=== PATIENT | female | born 1985 | race African-American/Black ===

== ENCOUNTER 2016-09-17 00:12 | Emergency (ER) | payer MEDICAID ==
[2016-09-17] MEDS ORDERED: AMOXICILLIN TRIHYDRATE 500 MG CAPSULE PO ONE (01:47)
--- NOTE | 2016-09-17 01:49 | ER Document Report ---
ED ENT - General Chief Complaint: Flu Symptoms Stated Complaint: FEVER,COUGH Time seen by provider: 01:47 Mode of Arrival: Ambulatory Information source: Patient TRAVEL OUTSIDE OF THE [place] IN LAST 30 DAYS: No - HPI Patient complains to provider of: Throat problem Onset: This morning Onset/Duration: Gradual Quality of pain: Achy Severity: Mild Pain Level: 1 Location of pain: Throat Associated symptoms: Chills, Congestion, Cough, Runny nose, Sore throat Similar symptoms previously: Yes Recently seen / treated by doctor: No Notes: Patient is a 31-year-old female with a history of asthma who presents to the emergency room complaining of fever, body aches, nonproductive cough, sore throat, diarrhea, symptoms started today, her 9-year-old son with similar symptoms over the past few days as well denies nausea or vomiting - Related Data Allergies/Adverse Reactions: No Known Allergies Allergy (Verified 01/29/16 22:02) Past Medical History - General Information source: Patient - Social History Smoking Status: Never Smoker Chew tobacco use (# tins/day): No Frequency of alcohol use: Occasional Drug Abuse: None Family History: Reviewed & Not Pertinent Patient has suicidal ideation: No Patient has homicidal ideation: No - Past Medical History Cardiac Medical History: Denies: Hx Coronary Artery Disease, Hx Heart Attack, Hx Hypertension Pulmonary Medical History: Reports: Hx Asthma - seasonal no current inhaler Denies: Hx Bronchitis, Hx COPD, Hx Pneumonia Neurological Medical History: Denies: Hx Cerebrovascular Accident, Hx Seizures Renal/ Medical History: Denies: Hx Peritoneal Dialysis Musculoskeltal Medical History: Denies Hx Arthritis - Immunizations Hx Diphtheria, Pertussis, Tetanus Vaccination: Yes Review of Systems - Review of Systems Constitutional: See HPI EENT: See HPI Cardiovascular: No symptoms reported Respiratory: See HPI Gastrointestinal: Diarrhea Genitourinary: No symptoms reported Female Genitourinary: No symptoms reported Musculoskeletal: No symptoms reported Skin: No symptoms reported Hematologic/Lymphatic: No symptoms reported Neurological/Psychological: No symptoms reported -: Yes All other systems reviewed and negative Physical Exam - Vital signs Vitals: Temp Pulse Resp BP Pulse Ox 100.3 F 116 H 17 120/68 98 09/17/16 00:21 09/17/16 00:21 09/17/16 00:21 09/17/16 00:21 09/17/16 00:21 Interpretation: Tachycardic - General General appearance: Appears well, Alert In distress: None - HEENT Head: Normocephalic, Atraumatic Eyes: Normal Conjunctiva: Normal Extraocular movements intact: Yes Eyelashes: Normal Pupils: PERRL Ears: Normal External canal: Normal Tympanic membrane: Normal Sinus: Normal Nasal: Normal Mucous membranes: Normal Pharynx: Erythema, Exudate, Tonsillar hypertrophy Neck: Normal - Respiratory Respiratory status: No respiratory distress Chest status: Nontender Breath sounds: Normal Chest palpation: Normal - Cardiovascular Rhythm: Regular Heart sounds: Normal auscultation Murmur: No - Abdominal Inspection: Obese Distension: No distension Bowel sounds: Normal Tenderness: Nontender Organomegaly: No organomegaly - Back Back: Normal, Nontender - Extremities General upper extremity: Normal inspection, Nontender, Normal color, Normal ROM , Normal temperature General lower extremity: Normal inspection, Nontender, Normal color, Normal ROM , Normal temperature, Normal weight bearing. No: Yoshi's sign - Neurological Neuro grossly intact: Yes Cognition: Normal Orientation: AAOx4 Sherry Coma Scale Eye Opening: Spontaneous [place] Coma Scale Verbal: Oriented [place] Coma Scale Motor: Obeys Commands Sherry Coma Scale Total: 15 Speech: Normal Motor strength normal: LUE, RUE, LLE, RLE Sensory: Normal - Psychological Associated symptoms: Normal affect, Normal mood - Skin Skin Temperature: Warm Skin Moisture: Dry Skin Color: Normal Course - Re-evaluation Re-evalutation: 09/17/16 02:25 Patient's posterior pharynx consistent with strep pharyngitis, she was started on antibiotics for this, advised to take Tylenol or Motrin as needed for pain or fever, follow up with her primary care provider or return if symptoms worsen , patient acknowledges understanding and agreement with this plan - Vital Signs Vital signs: Temp Pulse Resp BP Pulse Ox 99.1 F 109 H 18 113/76 99 09/17/16 01:46 09/17/16 01:46 09/17/16 01:46 09/17/16 01:46 09/17/16 01:46 Discharge - Discharge Clinical Impression: Strep pharyngitis Condition: Stable Disposition: HOME, SELF-CARE Instructions: Acetaminophen, Strep Throat ([facility]) Additional Instructions: Tylenol or Motrin as needed for fever or body aches. Follow up with your primary care provider in 2-3 days. Return to the emergency room immediately if symptoms worsen or any additional concerns. Prescriptions: Amoxicillin Trihydrate [Amoxil 500 mg Capsule] 500 mg PO TID #30 cap Forms: Return to Work Referrals: CHARLES VILLARREAL MD [Primary Care Provider] - Follow up as needed
[2016-09-17 02:06] VITALS: BP 113/76
[2016-09-17] MEDS ORDERED: IBUPROFEN 800 MG TABLET PO ONE (02:10)
== END 2016-09-17 02:14 | disposition home or self-care (01) ==
LOC: ER 00:12
DX: J02.0 Streptococcal pharyngitis (principal); R50.9 Fever, unspecified; R05 Cough; R00.0 Tachycardia, unspecified; M79.1 Myalgia; R19.7 Diarrhea, unspecified
CPT/HCPCS: 99283; 87804; J3490

== ENCOUNTER 2017-10-27 11:23 | Emergency (ER) | payer MEDICAID ==
[2017-10-27] MEDS ORDERED: DEXAMETHASONE SOD PHOS INJ 10 MG/1 ML VIAL IM ONE (12:27)
[2017-10-27] MEDS ORDERED: KETOROLAC TROMETHAMINE INJ/PF 30 MG/1 ML SDV IM ONE (12:27)
[2017-10-27 13:24] LABS: APPEARANCE,URINE SLIGHTLY-CLOUDY; BILIRUBIN,URINE NEGATIVE (NEGATIVE); COLOR,URINE YELLOW; GLUCOSE, URINE NEGATIVE (NEGATIVE); KETONES,URINE NEGATIVE (NEGATIVE); LEUKOCYTE ESTERASE,URINE TRACE (NEGATIVE); NITRITE,URINE NEGATIVE (NEGATIVE); PROTEIN,URINE NEGATIVE (NEGATIVE); URINE SPECIFIC GRAVITY 1.016; UROBILINOGEN,URINE NEGATIVE mg/dL (<2.0)
--- NOTE | 2017-10-27 13:54 | RADIOLOGY REPORT (SQ) ---
EXAM DESCRIPTION: CHEST 2 VIEWS COMPLETED DATE/TIME: 10/27/2017 1:18 pm REASON FOR STUDY: cough congestion fever sore throat COMPARISON: None. EXAM PARAMETERS: NUMBER OF VIEWS: two views TECHNIQUE: Digital Frontal and Lateral radiographic views of the chest acquired. RADIATION DOSE: NA LIMITATIONS: none FINDINGS: LUNGS AND PLEURA: There are scattered somewhat ill-defined reticulonodular densites which could be related to an interstitial pneumonitis or viral syndrome. MEDIASTINUM AND HILAR STRUCTURES: No masses or contour abnormalities. HEART AND VASCULAR STRUCTURES: Heart normal size. No evidence for failure. BONES: No acute findings. HARDWARE: None in the chest. OTHER: No other significant finding. IMPRESSION: Scattered somewhat ill-defined reticulonodular densities as noted above which could be r elated to an interstitial pneumonitis or possible viral syndrome. Clinical correlation is eusebia bill TECHNICAL DOCUMENTATION: JOB ID: [id number]- All Rights Reserved Reading location - IP/workstation name: [email or web address]
--- NOTE | 2017-10-27 14:49 | ER Document Report ---
ED Flu Like - General Chief Complaint: Flu Symptoms Stated Complaint: FEVER Time Seen by Provider: 10/27/17 12:12 Mode of Arrival: Ambulatory Information source: Patient Notes: 32-year-old female presents to ED for complaint of flulike symptoms. She states she had fever body aches sore throat bilateral ear pain since last night. She states she has had a cough congestion and came in with a fever of 101 with elevated pulse. Patient was swabbed for strep urine was sent and chest x-rays were completed. TRAVEL OUTSIDE OF THE [place] IN LAST 30 DAYS: No - HPI Onset: Yesterday Timing/Duration: Worse Quality of pain: Achy Severity: Moderate Pain Level: 3 Associated symptoms: Body/muscle aches, Chills, Nonproductive cough, Earache, Fever, Rhinnorhea, Sinus pain/drainage, Shortness of breath Similar symptoms previously: Yes Recently seen / treated by doctor: No - Related Data Allergies/Adverse Reactions: No Known Allergies Allergy (Verified 01/29/16 22:02) Past Medical History - General Information source: Patient - Social History Smoking Status: Former Smoker Cigarette use (# per day): No Chew tobacco use (# tins/day): No Smoking Education Provided: No Frequency of alcohol use: Social Drug Abuse: None Lives with: Family Family History: CAD, CVA, DM, Hyperlipidemia, Hypertension, Malignancy, Thyroid Disfunction. denies: Arthritis, COPD Patient has suicidal ideation: No Patient has homicidal ideation: No - Past Medical History Cardiac Medical History: Reports: None Pulmonary Medical History: Reports: Hx Asthma - seasonal no current inhaler Denies: None, Hx Bronchitis, Hx COPD, Hx Pneumonia, Hx Intubation, Hx Respiratory Failure, Hx Sleep Apnea, Hx Tuberculosis, Other EENT Medical History: Reports: None Neurological Medical History: Reports: None Endocrine Medical History: Reports: None Renal/ Medical History: Reports: None Malignancy Medical History: Reports: None GI Medical History: Reports: None Musculoskeltal Medical History: Reports None Skin Medical History: Reports None Psychiatric Medical History: Reports: None Traumatic Medical History: Reports: None Infectious Medical History: Reports: None Surgical Hx: Negative Past Surgical History: Reports: None - Immunizations Hx Diphtheria, Pertussis, Tetanus Vaccination: Yes Review of Systems - Review of Systems Constitutional: Chills, Fever, Recent illness EENT: Ear pain, Nose discharge, Sinus discharge, Throat pain Cardiovascular: No symptoms reported Respiratory: Cough Gastrointestinal: No symptoms reported Genitourinary: No symptoms reported Female Genitourinary: No symptoms reported Musculoskeletal: No symptoms reported Skin: No symptoms reported Hematologic/Lymphatic: No symptoms reported Neurological/Psychological: No symptoms reported -: Yes All other systems reviewed and negative Physical Exam - Vital signs Vitals: Temp Pulse Resp BP Pulse Ox 101.0 F H 113 H 19 109/64 100 10/27/17 11:36 10/27/17 11:36 10/27/17 11:36 10/27/17 11:36 10/27/17 11:36 Interpretation: Normal - General General appearance: Appears well, Alert - HEENT Head: Normocephalic, Atraumatic Eyes: Normal Pupils: PERRL Ears: Normal External canal: Normal Tympanic membrane: Normal Nasal: Purulent discharge, Swelling Mouth/Lips: Normal Mucous membranes: Normal Pharynx: Erythema, Post nasal drainage, Tonsillar hypertrophy. No: Uvular edema , Potential airway comprom. Neck: Normal - Respiratory Respiratory status: No respiratory distress Chest status: Nontender Breath sounds: Normal, Nonproductive cough Chest palpation: Normal - Cardiovascular Rhythm: Regular Heart sounds: Normal auscultation Murmur: No - Abdominal Inspection: Normal Distension: No distension Bowel sounds: Normal Tenderness: Nontender Organomegaly: No organomegaly - Back Back: Normal, Nontender - Extremities General upper extremity: Normal inspection, Nontender, Normal color, Normal ROM , Normal temperature General lower extremity: Normal inspection, Nontender, Normal color, Normal ROM , Normal temperature, Normal weight bearing. No: Yoshi's sign - Neurological Neuro grossly intact: Yes Cognition: Normal Orientation: AAOx4 Sherry Coma Scale Eye Opening: Spontaneous [place] Coma Scale Verbal: Oriented [place] Coma Scale Motor: Obeys Commands Sher[place] Coma Scale Total: 15 Speech: Normal Motor strength normal: LUE, RUE, LLE, RLE Sensory: Normal - Psychological Associated symptoms: Normal affect, Normal mood - Skin Skin Temperature: Warm Skin Moisture: Dry Skin Color: Normal Course - Re-evaluation Re-evalutation: 10/27/17 15:53 Patient was treated with Toradol and Decadron for her sore throat enlarged tonsils and she was treated with Levaquin for her possible early viral or pneumonia. She had a fever of 101 elevated pulse on arrival after the Toradol Decadron her fever was down states her throat felt much better she states she was able to breathe much better. Consulted Dr. Perry with signs symptoms and the x-ray. He stated he should put the patient on Levaquin 750 daily for 7 days. Patient was instructed to follow-up with her primary doctor within the next 24-48 hours. - Vital Signs Vital signs: Temp Pulse Resp BP Pulse Ox 98.3 F 99 18 105/61 97 10/27/17 14:49 10/27/17 14:49 10/27/17 14:49 10/27/17 14:49 10/27/17 14:49 - Laboratory Laboratory results interpreted by me: 10/27/17 12:55 Ur Leukocyte Esterase TRACE H - Diagnostic Test Radiology reviewed: Image reviewed, Reports reviewed Discharge - Discharge Clinical Impression: Viral sore throat Pneumonia Qualifiers: Pneumonia type: due to unspecified organism Laterality: unspecified laterality Lung location: unspecified part of lung Qualified Code(s): J18.9 - Pneumonia, unspecified organism Condition: Stable Disposition: HOME, SELF-CARE Instructions: Family Physicians / Practices Additional Instructions: PNEUMONIA: Your examination indicates that you have pneumonia. This is an infection of the lung tissue, usually caused by bacteria or a virus. Symptoms include cough, fever, shaking chills, chest pain, shortness of breath, and coughing up bloody sputum. Treatment for bacterial pneumonia includes rest, antibiotics for 10 to 14 days, increasing your clear liquid intake, a cool mist humidifier at your bedside, and fever medication. Often, a repeat chest X-ray is performed in a few weeks--even if you feel better--to ascertain whether the infection has completely resolved and no underlying lung problem is present. You should call the physician if you develop persistent vomiting, high fever that does not respond to fever medication, increasing shortness of breath , confusion, or lethargy. Also, failure to improve within two to three days is an indication for re-examination. LEVOFLOXACIN: You have been given an antibacterial agent, levofloxacin (Levaquin). This medicine is not related to the penicillins, sulfas, cephalosporins, or tetracyclines. It is often given to patients who are allergic to these drugs. It has been chosen for you either because other drugs are not appropriate, or because of the nature of your problem. Levaquin should not be taken with antacids, as these can decrease its effectiveness. It can be taken without regard to meals. LEVAQUIN SHOULD NOT BE TAKEN BY CHILDREN, NURSING WOMEN, OR WOMEN. Although Levaquin is usually well-tolerated, common side effects can include nausea and diarrhea. Contact your doctor if you experience any unusual symptoms while on this medication, such as joint pain or swelling, shortness of breath, wheezing, faintness, or hives. SORE THROAT: Sore throats may be caused by viruses, bacteria, or fungi. Most are due to a virus, and must get better on their own. Bacterial sore throats, particularly those due to "strep," need treatment with antibiotics. If an antibiotic is prescribed, be sure to take the medication for a full 10 days. Failure to take the antibiotic can result in complications such as rheumatic fever. Sometimes, an injection of antibiotics is given instead of pills or liquid. This single "shot" is equal in effectiveness to the oral medication. To relieve symptoms, take acetaminophen for pain. Sip clear liquids frequently, or eat popsicles or ice chips. Anesthetic sprays or lozenges may help. Make sure the air in the room is not too dry. Avoid using decongestants or antihistamines. Call the doctor if there is no improvement in two days, or if you have difficulty breathing, increasing throat pain, high fever, rash, or frequent vomiting. STEROID MEDICATION: You have been given a medicine of the cortisone/steroid class. This medication is used to control inflammation or allergy. It is usually only given for a short period of time, until the acute process subsides. There are usually no side effects from short-term use of cortisone-like medications. Some persons feel an increased sense of well-being and are not sleepy at bedtime. Long-term use of cortisone medications is best avoided, unless required for a severe condition. If your condition does not remit, or relapses after the course of corticosteroid medication, you should consult your physician. Toradol Injection You have been given an injection of ketorolac tromethamine (Toradol). This is an excellent, safe drug for pain control. It also has potent antiinflammatory action. You should have significant pain relief within about one hour. Toradol is not addicting and is non-sedating. It does not interfere with driving or work. Call or return if you develop itching, hives, shortness of breath, or rash. USE OF ACETAMINOPHEN (Tylenol): Acetaminophen may be taken for pain relief or fever control. It's much safer than aspirin, offering a wider range of "safe" dosages. It is safe during . Some brand names are Tylenol, Panadol, Datril, Anacin 3, Tempra, and Liquiprin. Acetaminophen can be repeated every four hours. The following are maximum recommended dosages: WEIGHT Dose Drops Elixir Chewable( 80mg) (LBS.) drprs=droppers tsp=teaspoon 6 40 mg 0.4 ml (1/2) 6-11 80 mg 0.8 ml (full) tsp 1 tab 12-16 120 mg 1 1/2 drprs 3/4 tsp 1 1/2 tabs 17-23 160 mg 2 drprs 1 tsp 2 tabs 24-30 240 mg 3 drprs 1 1/2 tsp 3 tabs 30-35 320 mg 2 tsp 4 tabs 36-41 360 mg 2 1/4 tsp 4 1/2 tabs 42-47 400 mg 2 1/2 tsp 5 tabs 48-53 480 mg 3 tsp 6 tabs 54-59 520 mg 3 1/4 tsp 6 1/2 tabs 60-64 560 mg 3 1/2 tsp 7 tabs 65-70 600 mg 3 3/4 tsp 7 1/2 tabs 71-76 640 mg 4 tsp 8 tabs 77-82 720 mg 4 1/2 tsp 9 tabs 83-88 800 mg 5 tsp 10 tabs >89 pounds or adults 650 mg to 900 mg Acetaminophen can be repeated every four hours. Maximum dose not to exceed 4000 mg a day. These maximum recommended dosages are slightly higher than the dosages written on the product container, but these dosages are very safe and below the toxic dosage for acetaminophen. FOLLOW-UP CARE: If you have been referred to a physician for follow-up care, call the physician s office for an appointment as you were instructed or within the next two days. If you experience worsening or a significant change in your symptoms, notify the physician immediately or return to the Emergency Department at any time for re-evaluation. Prescriptions: Levofloxacin [Levaquin 750 mg Tablet] 750 mg PO DAILY #7 tablet
[2017-10-27 14:51] VITALS: BP 105/61
[2017-10-27] MEDS ORDERED: LEVOFLOXACIN 750 MG TABLET PO ONE (14:52)
== END 2017-10-27 15:01 | disposition home or self-care (01) ==
LOC: ER 11:23
DX: J18.9 Pneumonia, unspecified organism (principal); R50.9 Fever, unspecified; M79.1 Myalgia; H92.03 Otalgia, bilateral
CPT/HCPCS: 99284; 96372; 87070; 87880; 81001; 71046; J1885; J1100; J3490

== ENCOUNTER 2018-12-12 21:49 | Emergency (ER) | payer MEDICAID ==
[2018-12-13] MEDS ORDERED: DEXAMETHASONE SOD PHOS INJ 10 MG/1 ML VIAL IM ONE (01:28)
--- NOTE | 2018-12-13 01:28 | ER Document Report ---
HPI - HPI Time Seen by Provider: 12/13/18 00:53 Pain Level: 5 Context: Patient is a 33-year-old female that comes to the emergency department for chief complaint of sore throat, sinus congestion, postnasal drainage, cough. She also has right ear pain now. Symptoms started about 5 days ago. She denies fever/chills. She states her sinuses started draining and now her sinuses no longer hurt. She reports a history of asthma but states she has not needed albuterol and has not been wheezing. She denies any daily medications or medical history otherwise. Both of her children are sick with similar symptoms. - REPRODUCTIVE Reproductive: DENIES: : Past Medical History - General Information source: Patient - Social History Smoking Status: Never Smoker Frequency of alcohol use: None Drug Abuse: None Lives with: Family Family History: CAD, CVA, DM, Hyperlipidemia, Hypertension, Malignancy, Thyroid Disfunction. denies: Arthritis, COPD - Past Medical History Cardiac Medical History: Denies: Hx Coronary Artery Disease, Hx Heart Attack, Hx Hypertension Pulmonary Medical History: Reports: Hx Asthma - seasonal no current inhaler Denies: Hx Bronchitis, Hx COPD, Hx Pneumonia, Hx Intubation, Hx Respiratory Failure, Hx Sleep Apnea, Hx Tuberculosis Neurological Medical History: Denies: Hx Cerebrovascular Accident, Hx Seizures Renal/ Medical History: Denies: Hx Peritoneal Dialysis Musculoskeletal Medical History: Denies Hx Arthritis - Immunizations Hx Diphtheria, Pertussis, Tetanus Vaccination: Yes Vertical Provider Document - CONSTITUTIONAL General Appearance: WD/WN, No Apparent Distress, Obese - INFECTION CONTROL TRAVEL OUTSIDE OF THE [place] IN LAST 30 DAYS: No - HEENT HEENT: Atraumatic, Normocephalic. negative: Normal ENT Exam - Mild erythema in the posterior pharynx. Sinus congestion noted without sinus tenderness. Swollen turbinates worse on the right compared to the left. There appears to be a small right-sided ear effusion, tympanic membranes,, canals, ears unremarkable otherwise. Normal mastoids. - NECK Neck: Lymphadenopathy-Left, Lymphadenopathy-Right - RESPIRATORY Respiratory: Breath Sounds Normal, No Respiratory Distress - CARDIOVASCULAR Cardiovascular: Regular Rate, Regular Rhythm - GI/ABDOMEN Gastrointestinal: Abdomen Soft, Abdomen Non-Tender - BACK Back: Normal Inspection - MUSCULOSKELETAL/EXTREMETIES Musculoskeletal/Extremeties: MAEW, FROM, Non-Tender - NEURO Level of Consciousness: Awake, Alert, Appropriate Motor/Sensory: No Motor Deficit, No Sensory Deficit - DERM Integumentary: Warm, Dry, No Rash Course - Re-evaluation Re-evalutation: Exam is very suggestive of a viral upper respiratory illness with postnasal drip, congestion, and secondary cough. Low suspicion of pneumonia. Strep test was negative. I discussed the patient, she is provided with Flonase, Sudafed, Decadron here for her symptoms. Discussed follow-up and return precautions. Patient states satisfaction agreement. Patient is here with her daughter, her daughter just tested positive for strep throat. I discussed with patient, patient requests to be treated for this as well because of her daughter's positive test and they are very close constant contact. She was provided with the prescription. - Vital Signs Vital signs: Temp Pulse Resp BP Pulse Ox 99.4 F 91 20 132/92 H 97 12/12/18 22:45 12/12/18 22:45 12/12/18 22:45 12/12/18 22:45 12/12/18 22:45 Discharge - Discharge Clinical Impression: Anterior cervical adenopathy, Post-nasal drip, Cough, Right ear pain Pharyngitis Qualifiers: Pharyngitis/tonsillitis etiology: unspecified etiology Qualified Code(s): J02.9 - Acute pharyngitis, unspecified Condition: Stable Disposition: HOME, SELF-CARE Additional Instructions: Your evaluation is consistent with a viral illness, you also have right ear effusion (fluid behind the eardrum), use the nasal spray to help open the eustachian tube for this to drain, use the Sudafed to help with this as well. You have been given dexamethasone tonight to help with the swelling of your throat and lymph nodes. [id number] antihistamines such as Zyrtec or Genoveva can help as well. Follow-up with primary care. Return if you worsen including difficulty breathing, developing fever, difficulty swallowing, or any other concerning or worsening symptoms. Prescriptions: Amoxicillin Trihydrate [Amoxil 500 mg Capsule] 500 mg PO BID 10 Days #20 capsule Fluticasone Propionate [Flonase Nasal Lind[place] 50 Mcg/Lind[place] 16 gm] 2 sprays NASL Q12 #1 inhaler Pseudoephedrine HCl [Sudafed 12 Hour] 120 mg PO Q12 PRN #14 tablet.er PRN Reason:
[2018-12-13 03:15] VITALS: BP 129/81
== END 2018-12-13 02:57 | disposition home or self-care (01) ==
LOC: ER 21:49
DX: J02.9 Acute pharyngitis, unspecified (principal); R59.0 Localized enlarged lymph nodes; R09.82 Postnasal drip; R05 Cough; H92.01 Otalgia, right ear
CPT/HCPCS: 99283; 96372; 87070; 87880; J1100